=== PATIENT | male | born 1955 | race Caucasian/White ===

== ENCOUNTER → 2017-01-17 | Outpatient (CLI) | payer MEDICAID ==
[2017-01-17 16:11] LABS: Basophils % (A) 0 %; CHCM 34.5; Eosinophils # (A) 0.1 k/uL (0-0.7); Eosinophils % (A) 1 %; HCT 41.6 % (39.0-53.0); HDW 2.58; HGB 14.6 gm/dL (13.0-17.5); Luc # (Auto) 0.21; Luc % (Auto) 3; Lymphocytes # (A) 1.6 k/uL (1.0-4.8); Lymphocytes % (A) 20 %; MCH 34.7 pg (25.0-35.0); MCHC 35.1 g/dL (31.0-37.0); MCV 98.9 fL (80.0-100.0); Mean Platelet Volume 7.3; Monocytes # (A) 0.4 k/uL (0-1.0); Monocytes % (A) 5 %; Neutrophils # (A) 5.6 k/uL (1.3-7.7); Neutrophils % (A) 71 %; RDW 12.6 % (11.5-15.5); WBC 7.8 k/uL (3.8-10.6); WBC (Perox) 7.94
[2017-01-17 16:12] LABS: Appearance,Urine Clear (Clear); Bilirubin,Urine Negative (Negative); Glucose,Urine (UA) Negative (Negative); Ketones,Urine Negative (Negative); Leukocyte Esterase,Urine Negative (Negative); Nitrite,Urine Negative (Negative); PH, Urine 5.5 (5.0-8.0); Protein,Urine Negative (Negative); Specific Gravity,Urine 1.019 (1.001-1.035); UA Billing (MACRO vs. MICRO) CHEM; Urobilinogen,Urine <2.0 mg/dL (<2.0)
[2017-01-17 16:29] LABS: ALT 40 U/L (21-72); AST 26 U/L (17-59); Alkaline Phosphatase 68 U/L (38-126); Anion Gap 11 mmol/L; Blood Urea Nitrogen 19 mg/dL (9-20); Calcium 9.5 mg/dL (8.4-10.2); Carbon Dioxide 27 mmol/L (22-30); Chloride 107 mmol/L (98-107); Cholesterol 177 mg/dL (<200); Creatine Kinase 219 U/L (55-170); Glucose 94 mg/dL (74-99); HDL Cholesterol 54 mg/dL (40-60); Non-African American GFR(MDRD) >60 (>60 ml/min/1.73 sqM); Potassium 4.8 mmol/L (3.5-5.1); Sodium 145 mmol/L (137-145); Total Bilirubin 0.5 mg/dL (0.2-1.3); Total Protein 7.3 g/dL (6.3-8.2); Triglycerides 118 mg/dL (<150); Uric Acid 7.1 mg/dL (3.5-8.5)
[2017-01-17 16:53] LABS: Prostate Specific Antigen 0.94 ng/mL (0.00-4.00)
[2017-01-17 20:16] LABS: Hemoglobin A1C 5.3 % (4.2-6.1)
== END | disposition home or self-care (01) ==
LOC: LABWHC1 15:44
PROVIDERS: ATTEND Internal Medicine
DX: E78.5 Hyperlipidemia, unspecified (principal); N40.0 Benign prostatic hyperplasia without lower urinary tract symptoms; K57.10 Diverticulosis of small intestine without perforation or abscess without bleeding
CPT/HCPCS: 36415; 80053; 80061; 81003; 82550; 83036; 84153; 84439; 84443; 84550; 85025

== ENCOUNTER 2017-02-28 09:48 | Day surgery (SDC) | payer MEDICAID ==
[2017-02-28 10:04] VITALS: RESP 16; TEMP 97.9
[2017-02-28] MEDS: LACTATED RINGERS 1,000 ML IV SCH ×2 (10:07→10:09)
[2017-02-28] MEDS ORDERED: LIDOCAINE 1% 20 ML VIAL (10MG/ML) FOR IV START INTRADERMA ONE (10:08)
[2017-02-28] MEDS ORDERED: LIDOCAINE 1% INJ 10MG/ML (20 ML MDV) ONE (10:09)
[2017-02-28] MEDS ORDERED: PROPOFOL 10 MG/ML 20 ML VIAL IV ONE (10:09)
[2017-02-28] MEDS ORDERED: LACTATED RINGERS 1,000 ML IV ONE (10:10)
--- NOTE | 2017-02-28 10:41 | P.OP ---
Date of Procedure: 02/28/17 Preoperative Diagnosis: Screening Postoperative Diagnosis: 1 distal transverse colon polyp. 2 localized area of inflammation in the splenic flexure. 3 moderate diverticulosis. Procedure(s) Performed: Colonoscopy and snare polypectomy and cold biopsies of the splenic flexure inflammation. Implants: Anesthesia: MAC Surgeon: Fab Cabral Estimated Blood Loss (ml): 0 Pathology: other (Transverse colon polyp. Splenic flexure biopsies.) Condition: stable Disposition: same day Indications for Procedure: Screening. Operative Findings: 1 distal transverse colon the polypoid lesion about the 3-4 mm in diameter. 2 localized area of the friable inflammation in the splenic flexure. 3 mild to moderate diverticulosis. Description of Procedure: With the patient in the left lateral position rectal digital examination was normal. There were no palpable masses. No prostatic masses. The video colonoscope was inserted transanally and advanced all the way to the cecum which was entered and well visualized. The mucosa were thoroughly examined. Findings as above. The patient tolerated procedure well without any evident complication. Recommendation we'll await the biopsy result. High-fiber diet. If benign would recommend a follow-up colonoscopy in about 3 years so.
[2017-02-28 11:11] VITALS: BP 126/74; PULSE 76
== END 2017-02-28 11:11 | disposition home or self-care (01) ==
LOC: ORWHC2ENDO 09:48
PROVIDERS: ATTEND Surgery
DX: Z12.11 Encounter for screening for malignant neoplasm of colon (principal); K52.9 Noninfective gastroenteritis and colitis, unspecified; K57.30 Diverticulosis of large intestine without perforation or abscess without bleeding; Z87.891 Personal history of nicotine dependence
CPT/HCPCS: 88305; 45380; 45385; J2001; J2704

== ENCOUNTER → 2018-10-09 | Outpatient (CLI) | payer MEDICAID ==
[2018-10-09 08:40] LABS: Basophils % (A) 1 %; Eosinophils # (A) 0.1 k/uL (0-0.7); Eosinophils % (A) 2 %; HCT 43.4 % (39.0-53.0); HGB 14.7 gm/dL (13.0-17.5); Lymphocytes # (A) 1.2 k/uL (1.0-4.8); Lymphocytes % (A) 23 %; MCH 33.4 pg (25.0-35.0); MCHC 33.8 g/dL (31.0-37.0); MCV 98.7 fL (80.0-100.0); Mean Platelet Volume 6.9; Monocytes # (A) 0.2 k/uL (0-1.0); Monocytes % (A) 5 %; Neutrophils # (A) 3.3 k/uL (1.3-7.7); Neutrophils % (A) 66 %; Platelet Count 239 k/uL (150-450); RDW 12.6 % (11.5-15.5)
[2018-10-09 08:42] LABS: Appearance,Urine Clear (Clear); Bilirubin,Urine Negative (Negative); Blood,Urine Negative (Negative); Color,Urine Yellow; Glucose,Urine (UA) Negative (Negative); Ketones,Urine Negative (Negative); Leukocyte Esterase,Urine Negative (Negative); Nitrite,Urine Negative (Negative); Protein,Urine Negative (Negative); Urobilinogen,Urine <2.0 mg/dL (<2.0)
[2018-10-09 17:05] LABS: Albumin 4.7 g/dL (3.80-4.90); Albumin/Globulin Ratio 2.14 (1.60-3.17); Anion Gap 8.7 mmol/L (4.00-12.00); Calcium 9.3 mg/dL (8.7-10.3); Carbon Dioxide 25.3 mmol/L (21.6-31.8); Globulin 2.2 g/dL (1.6-3.3); Potassium 4.6 mmol/L (3.5-5.5); Total Bilirubin 0.6 mg/dL (0.2-1.2); Total Protein 6.9 g/dL (6.2-8.2)
[2018-10-09 17:13] LABS: T4, Free (Free Thyroxine) 1.2 ng/dL (0.80-1.80)
[2018-10-09 19:10] LABS: Hemoglobin A1C 5.4 % (4.0-6.0)
== END ==
LOC: LABWHC1 08:12
PROVIDERS: ATTEND Internal Medicine
DX: E78.5 Hyperlipidemia, unspecified (principal); N40.0 Benign prostatic hyperplasia without lower urinary tract symptoms; R00.1 Bradycardia, unspecified
CPT/HCPCS: 36415; 80053; 80061; 81003; 82550; 83036; 84153; 84439; 84443; 85025

== ENCOUNTER → 2018-11-12 | Outpatient (CLI) | payer MEDICAID ==
--- NOTE | 2018-11-12 21:38 | CONS ---
CONSULTATION DATE OF SERVICE: 11/12/2018 62-year-old gentleman who has been evaluated in the sleep center for possible obstructive sleep apnea-hypopnea syndrome. HISTORY OF PRESENT ILLNESS/SLEEP WAKE EVALUATION: SLEEP SCHEDULE: Patient usual sleep schedule from 10 p.m. to 6 a.m. basically 7 days a week. FALLING ASLEEP: Usually no significant problem with falling asleep, has TV set in bedroom. DURING SLEEP: He sleeps usually on the side position with his . According to her, he has loud snoring and some episodes of stopped breathing during the sleep. He usually sleeps through the night. Does not wake up during the night. No history of hypnagogic hallucinations, sleep paralysis or cataplexy. DURING THE DAY/SLEEP WAKE EVALUATION: At the same time, patient feels tiredness and sleepiness during the day. [place] Sleepiness Scale increased to 10. He may take naps afternoon. Usually no vivid dreams during naps. PAST MEDICAL HISTORY: Past medical history basically negative. PAST SURGICAL HISTORY: Past surgical history: None. FAMILY HISTORY: The patient does not know any significant medical problems of his parents. REVIEW OF SYSTEMS: Sleepiness during the day, otherwise negative. PHYSICAL EXAM: 62-year-old gentleman without distress. BP 138/85, HR 94, RR 16, height 5 feet 10 inches, weight 225 pounds. Body mass index 32.2, temperature 99.0, oxygen saturation at room air 96%. HEENT: Oropharynx extremely low position of soft palate. Mallampati 4. Restriction of nasal breathing. Wide neck is 17 inches in circumference. NECK: Supple, no JVD. Thyroid is not palpable. LUNGS Clear to percussion and to auscultation. Good air exchange. No wheezing or rhonchi. HEART S1, S2 regular. No murmurs, gallops, or rubs. ABDOMEN: Slightly obese. Soft and nontender. Bowel sounds are present. No organomegaly appreciated. EXTREMITIES No clubbing or cyanosis. TRAVELING ELECTRICIAN Awake, alert, and oriented X3. Cranial nerves 2 to 7 intact. There is no fasciculation or atrophy. noted. No focal deficits observed. IMPRESSION: 1. Loud snoring, witnessed episodes of stopped breathing during the sleep, extremely low position of soft palate, wide neck, excessive daytime sleepiness, obstructive sleep apnea-hypopnea syndrome. 2. Mild obesity, body mass index 32.2. 3. Restriction of nasal breathing, some asymmetry of the nose, possible nasal septum deviation. 4. Some excessive daytime sleepiness, most probably related to respiratory abnormalities, but differential diagnosis would include the possibility of hypersomnia and sleep apnea. Sleep study is negative for any obstructive sleep apnea, for any abnormalities of respiration. PLAN: 1. Polysomnography for evaluation of patient's breathing during sleep. 2. CPAP/BiPAP titration if sleep study confirms obstructive sleep apnea-hypopnea syndrome. 3. Preferable position during sleep on the side. 4. No driving if patient feels any sleepiness. 5. I will see patient for follow up visit to explain results of testing and following plan. Thank you very much for referring this patient for consultation. Sincerely, Timothy Mckeon MD, PhD, FAASM Diplomat of [place] [employer] [place] [employer] [facility] [place] MMODL / ARYN: [id number] /
== END ==
LOC: SLEEP 16:15
PROVIDERS: ATTEND Internal Medicine
DX: G47.33 Obstructive sleep apnea (adult) (pediatric) (principal); Q30.8 Other congenital malformations of nose; E66.9 Obesity, unspecified; Z68.32 Body mass index [BMI] 32.0-32.9, adult
CPT/HCPCS: 99211

== ENCOUNTER → 2019-07-26 | Outpatient (CLI) | payer MEDICAID ==
--- NOTE | 2019-07-26 15:01 | XR ---
EXAMINATION TYPE: XR chest 2V DATE OF EXAM: 07/26/2019 COMPARISON: NONE TECHNIQUE: PA and lateral views submitted. HISTORY: Cough FINDINGS: The lungs are clear and there is no pneumothorax, pleural effusion, or focal pneumonia. Arthropathy of the AC joints. No overt failure. Hypertrophic and degenerative change of the spine. IMPRESSION: 1. No acute process.
== END | disposition home or self-care (01) ==
LOC: RADXRMAIN 14:42
PROVIDERS: ATTEND Internal Medicine
DX: R05 Cough (principal)
CPT/HCPCS: 71046